=== PATIENT | male | born 1960 | race Caucasian/White ===

== ENCOUNTER → 2016-10-23 | Outpatient (CLI) | payer BC ==
[~2016-10-23] MED LIST: ACTOPLUS MET 11 EAC1; AMARYL2 MG PO; COLACE100 MG PO; FLOMAX0.4 MG PO; HYDRODIURIL12.5 MG PO; LEVAQUIN500 MG PO; MOBIC15 MG PO; MYRBETRIQ50 MG PO; NORCO 5-325 TA1 EACH PO; PYRIDIUM100 MG PO; TYLENOL EXTRA500 MG PO; ZESTRIL40 MG PO; ZOCOR40 MG PO
== END | disposition disaster alternative care site (69) ==
LOC: GRAD 15:28
DX: M16.12 Unilateral primary osteoarthritis, left hip (principal)

== ENCOUNTER → 2016-11-12 | Day surgery (SDC) | payer BC ==
[~2016-11-12] VITALS: Ht 185.4 cm; Wt 155.0 kg
--- NOTE | ~2016-11-12 | OR ---
PATIENT'S NAME: CHAD GOMEZ [facility] AGE: 56 Y [address] ROOM: [place] [address] [place] [facility] [place]: 11/12/2016 OR/Procedure Report DISCHARGE DATE: FAMILY PHYSICIAN: Quinn Bauer MD ATTENDING PHYSICIAN: YULISSA STANLEY SURGEON: Yulissa Stanley MD TERMINAL SYSTEM OPERATOR: None. DATE OF PROCEDURE: 11/12/2016 PREOPERATIVE DIAGNOSES: 1. Benign prostatic hyperplasia with bladder outlet obstruction. 2. Urinary retention. 3. Lower urinary tract symptoms including nocturia and weak urinary stream. POSTOPERATIVE DIAGNOSES: 1. Benign prostatic hyperplasia with bladder outlet obstruction. 2. Urinary retention. 3. Lower urinary tract symptoms including nocturia and weak urinary stream. ANESTHESIA ADMINISTERED: Monitored anesthesia care. OPERATIVE PROCEDURE: Cystoscopy with UroLift procedure (prostatic urethral lift). INDICATIONS FOR PROCEDURE: The patient is a pleasant 56-year-old male with history of BPH with bladder outlet obstruction, urinary retention, and lower urinary tract symptoms including nocturia and weak urinary stream. His symptoms have been refractory to pharmacologic therapy. The patient was explained the risks, benefits, indications, and alternatives to the above procedure and wished to proceed and consented freely. DESCRIPTION OF OPERATION: The patient was brought back to the operating room, where he was then placed on the OR table in the supine position. A surgical time-out was called where patient identification, surgical site, and procedure was then verified. We also did verify that the patient received an IV antibiotic within an hour of beginning the procedure. The patient then underwent successful administration of monitored anesthesia care. The patient was then moved and placed in a low lithotomy position where his genital area was then prepped and draped in the usual sterile fashion. I then began advancing a 20-Zimbabwean cystoscope sheath with long bridge and 0 degree lens per urethra. His anterior urethra was within normal limits. His posterior urethra was notable for moderate bilobar hyperplasia of the prostate. His bladder did have evidence of moderate bladder trabeculation noted throughout. There was no evidence of any bladder tumors, cellules, or diverticula. His ureteral orifices were noted to be in their orthotopic location. He did not PATIENT'S NAME: CHAD GOMEZ [facility] AGE: 56 Y [address] ROOM: [place] [address] LOCATION: [facility] [place] DATE: 11/12/2016 OR/Procedure Report DISCHARGE DATE: FAMILY PHYSICIAN: Quinn Bauer MD ATTENDING PHYSICIAN: YULISSA STANLEY have a median prostatic lobe. The cystoscope bridge was then replaced with the UroLift implant delivery device. The first treatment site was the patient's right side approximately 1.5 cm distal to the bladder neck. The distal tip of the delivery device was then angled laterally approximately 20 degrees at this position to compress the lateral lobe. The trigger was pulled thereby deploying a needle containing the implant through the prostate. The needle was then retracted allowing one end of the implant to be delivered to the capsular surface of the prostate. The implant was then tensioned to assure capsular seating and removal of slack monofilament. The device was then angled back toward midline and slowly advanced proximally until verification with cystoscopy of the monofilament being centered in the delivery bay. With a final triggering, the urethral end piece was then affixed to the monofilament, thereby tailoring the size and tension of the implant. Excess filament was severed with this maneuver. The device was then readvanced into the bladder. The above identical sequence was then repeated on the patient's left side. I then reinspected for successful placement of each implant as well as the degree of lateral lobe obstruction remaining. Two additional implants were delivered just proximal to the verumontanum in the same fashion given that he still had some obstructing tissue near the apex. Again, one implant was placed on the patient's right side and one on the left. A total of 4 implants were delivered successfully. A final cystoscopy was performed to inspect the location and state of each implant to assure proper seating and location. Final inspection also revealed an open prostatic urethra with irrigation flow turned off. Hemostasis was also excellent. I did leave approximately 250 mL of irrigation fluid in his bladder to assist with his voiding trial. The cystoscope had been removed. The patient was then taken out of the lithotomy position, and he was awoken from monitored anesthesia care, transferred to the recovery bed and transported to the recovery room in good condition. COMPLICATIONS: None. DRAINS: None. ESTIMATED BLOOD LOSS: Less than 10 mL. FOLLOWUP PLAN: We will plan to have the patient undergo a voiding trial today in clinic prior to being discharged home. If he successfully passes a trial of void, we will then plan to see him back in Urology Clinic in 2 to 3 weeks for followup. YULISSA STANLEY MD PATIENT'S NAME: CHAD GOMEZ [facility] AGE: 56 Y [address] ROOM: [place] [address] LOC[place]: [facility] [place]: 11/12/2016 OR/Procedure Report DISCHARGE DATE: FAMILY PHYSICIAN: Quinn Bauer MD ATTENDING PHYSICIAN: YULISSA STANLEY GP/modl /[id number] CC: Quinn Bauer MD d: 11/12/16 0930 t: 11/19/16 1833, OPERATIVE SUMMARY
--- NOTE | ~2016-11-12 | HP ---
PATIENT'S NAME: CHAD GOMEZ [facility] AGE: 56 Y [address] ROOM: [place] [address] [place] [facility] [place] DATE: 11/12/2016 History & Physical DISCHARGE DATE: FAMILY PHYSICIAN: Quinn Bauer MD ATTENDING PHYSICIAN: YULISSA STANLEY DATE OF SERVICE: This is for an upcoming surgery on November 12, 2016, at [facility] in [place]. CHIEF COMPLAINT: Followup. HISTORY OF PRESENT ILLNESS: The patient is a pleasant 56-year-old male, who returns for followup. The patient was last seen in Urology Clinic by Dr. Quinn Garcia on July 18, 2014. At that time, Dr. Garcia had evaluated the patient for a history of hematuria. He then underwent cystoscopy on July 18, 2014, with no significant bladder pathology, although the patient was noted to have some benign prostatic enlargement. He does have a history of invasive rectal cancer, for which he underwent colectomy along with chemotherapy and radiation therapy. He did have some difficulty with postoperative urinary retention following his rectal surgery and had successful fill and pull with catheter removal, and trial of void on October 12, 2014. He has also had difficulty since his treatment for rectal cancer with erectile dysfunction. He reports erections, which are not adequate or sustainable for intercourse. He has been taking tamsulosin 0.4 mg daily since his rectal surgery. The patient also reports he has a history of low testosterone, and he has been trying to stop testosterone supplementation, but felt this made his urinary symptoms worse, and he is afraid of the side effects of stopping supplementation. He has not tried any recent medications for erectile dysfunction since his treatment for rectal cancer. The patient did have some erectile dysfunction even before his treatment for rectal cancer and had tried some Cialis samples with good success from his primary care provider. He denies any prior history of penile curvature. He does report a weak urinary stream. He does report nocturia 1 to 2 times per night, but at times, it is 5 times per night. The patient has no further questions or concerns at this time. PAST MEDICAL HISTORY: 1. Erectile dysfunction. 2. BPH. 3. Rectal adenocarcinoma, status post chemotherapy and radiation therapy. PATIENT'S NAME: CHAD GOMEZ [facility] AGE: 56 Y [address] ROOM: [place], [place] [address] [place]: [facility] [place] DATE: 11/12/2016 History & Physical DISCHARGE DATE: FAMILY PHYSICIAN: Quinn Bauer MD ATTENDING PHYSICIAN: YULISSA STANLEY PAST SURGICAL HISTORY: 1. Chemotherapy port placement. 2. Cholecystectomy in May of 2005. 3. Right shoulder surgery in 1979. 4. Right shoulder repair in 1973. 5. Tonsillectomy. 6. Colectomy. FAMILY HISTORY: The patient is adopted. SOCIAL HISTORY: The patient smokes 4 to 6 cigarettes daily. He does drink alcohol on rare occasion. ALLERGIES: NO KNOWN DRUG ALLERGIES. MEDICATIONS: See attached medication list. REVIEW OF SYSTEMS: A full 10+ point review of systems was performed and is included on the several pages attached in chart. Pertinent positive and negative findings are also included in the history of present illness. PHYSICAL EXAMINATION: VITAL SIGNS: The patient's height is 6 feet 1 inch, his weight is 332 pounds. CONSTITUTIONAL: No acute distress. Hemodynamically stable. HEENT: Extraocular muscles intact. Mucous membranes moist. No drainage per ears or nose. CARDIOVASCULAR: Good peripheral perfusion. RESPIRATORY: No audible wheezing or stridor. Respirations do not appear labored. GASTROINTESTINAL: Abdomen is soft, nontender, nondistended. MUSCULOSKELETAL: Normal muscle tone and range of motion. SKIN: No rashes or open sores. NEUROLOGIC: No focal deficits noted. PSYCHIATRIC: Answers questions appropriately with normal affect. HEMATOLOGIC: No bruises or active sites of bleeding. Postvoid residual 688 mL. IMPRESSION: 1. Benign prostatic hyperplasia with bladder outlet obstruction. PATIENT'S NAME: CHAD GOMEZ [facility] AGE: 56 Y [address] ROOM: [place], [place] [address] LOCATION: [facility] [place] DATE: 11/12/2016 History & Physical DISCHARGE DATE: FAMILY PHYSICIAN: Quinn Bauer MD ATTENDING PHYSICIAN: YULISSA STANLEY 2. Urinary retention. 3. Erectile dysfunction. 4. Lower urinary tract symptoms including nocturia and weak urinary stream. PLAN: I had a long discussion with the patient regarding his treatment options for BPH. I expressed my concern regarding his considerably elevated postvoid residual. It appears that his BPH is now becoming refractory to pharmacologic therapy with an alpha thiago. We also discussed consideration of a 5-alpha- reductase inhibitor, although this would take anywhere from 6 to 9 months before he would possibly see any symptom improvement. We also discussed some of the side effects of the different medications for BPH. We then discussed alternative options for BPH including surgical therapy such as the UroLift procedure, transurethral resection of prostate, and photovaporization of the prostate. We discussed the risks, benefits, indications, and alternatives. At this point, the patient would like to proceed with the UroLift procedure, and we will get this set up for him. In the meantime, we will plan for him to remain on the tamsulosin. The patient's questions and concerns were addressed, and he has no further at this time. We also had a long discussion with the patient regarding some different etiologies, evaluation, and management of erectile dysfunction. At this point, the patient would like to try pharmacologic therapy, and he was given a prescription for Viagra to start with 50 mg and will titrate upward if necessary. YULISSA STANLEY MD GP/modl /[id number] D: [id number] T: [id number] HISTORY & PHYSICAL
== END | disposition disaster alternative care site (69) ==
LOC: GPOC 11-10 10:00 → GSDC 06:17
PROC: 0T7D8DZ Dilation of Urethra with Intraluminal Device, Via Natural or Artificial Opening Endoscopic (ICD-10-PCS; principal; 2016-11-12)
DX: N40.1 Benign prostatic hyperplasia with lower urinary tract symptoms (principal); N13.8 Other obstructive and reflux uropathy; R33.8 Other retention of urine; R39.12 Poor urinary stream; R35.1 Nocturia; E11.9 Type 2 diabetes mellitus without complications; I10 Essential (primary) hypertension; E78.5 Hyperlipidemia, unspecified; G47.33 Obstructive sleep apnea (adult) (pediatric); K21.9 Gastro-esophageal reflux disease without esophagitis; F17.210 Nicotine dependence, cigarettes, uncomplicated; E66.9 Obesity, unspecified; Z68.42 Body mass index [BMI] 45.0-49.9, adult; Z90.49 Acquired absence of other specified parts of digestive tract; Z98.890 Other specified postprocedural states
CPT/HCPCS: J1956; J2001; J3010; J7030; L8699